=== PATIENT | male | born 2000 | race Two or more races ===

== ENCOUNTER 2024-07-03 17:32 | Inpatient (IN) | payer MEDICAID, OTHER ==
[~2024-07-03] VITALS: Ht 180.3 cm; Wt 133.3 kg
[2024-07-03 18:42] LABS: Urine Bacteria FEW /hpf (None Seen); Urine Blood Negative /uL (Negative); Urine Clarity Clear (Clear); Urine Color Yellow (Yellow); Urine Mucus FEW (None Seen); Urine Protein, UAD 3+ (Negative); Urine Specific Gravity 1.049 (1.001-1.035); Urine Urobilinogen Normal (Negative); Urine WBC 5 /hpf (0 - 3)
--- NOTE | 2024-07-03 19:41 | DVH ---
ULTRASOUND OF SCROTUM AND CONTENTS. INDICATION: PAIN AND SWELLING LUMP LEFT COMPARISON: None TECHNIQUE: Multiple real-time grayscale sonographic and color and duplex Doppler images of the scrotu m and its contents were obtained. FINDINGS: The right testicle measures 3.1 x 2.3 x 4.1 cm. The left testicle measures 2.7 x 2.2 x 3.2 cm. 3.0 x 1.6 x 3.5 cm complex fluid collection seen at the inferior left scrotum. The right epididymal head measures 2.0 cm. The left epididymal head measures 1.8 cm. Subsequent color and duplex Doppler interrogation of the testes demonstrated symmetric normal vascula r flow to both testicles. IMPRESSION: 1. 3.5 cm complex fluid collection seen at the inferior left scrotum, possibly an abscess.. 2. No evidence of testicular torsion.
[2024-07-03 20:57] LABS: Basophils # (auto) 0.1 10 ^3/uL (0-0.2); Basophils % (auto) 0.6 % (0.0-2.0); Eosinophils # (auto) 0.2 10 ^3/uL (0-0.8); Eosinophils % (auto) 1.5 % (0.0-7.0); Lymphocytes # (auto) 2.2 10 ^3/uL (0.4-5.4); Lymphocytes % (auto) 18.3 % (10.0-50.0); Monocytes # (auto) 0.7 10 ^3/uL (0-1.3); Monocytes % (auto) 6.1 % (0.0-12.0); Neutrophils # (auto) 8.8 10 ^3/uL (1.6-8.6); Neutrophils % (auto) 73.5 % (37.0-80.0); Nucleated Red Blood Cells % 0.2 %
[2024-07-03 20:58] LABS: Hematocrit 49.9 % (41.0-53.0); Hemoglobin 16.9 g/dL (13.5-17.5); Mean Corpuscular Hemoglobin 28.3 pg (28.0-32.0); Mean Corpuscular Volume 83.5 fL (80.0-100.0); Platelet Count (auto) 275 10^3/uL (140-450); Red Blood Cells 5.98 10^6/uL (4.5-5.90)
[2024-07-03 20:59] LABS: Mean Corpuscular Hgb Conc. 33.9 g/dL (32.0-36.0)
[2024-07-03 21:00] LABS: Alanine Aminotransferase 84 U/L (7-40); Albumin 5.2 g/dL (3.2-4.8); Alkaline Phosphatase 104 U/L (46-116); Anion Gap 23.00001 (5-15); Aspartate Aminotransferase 102 U/L (13-40); BUN/Creatinine Ratio 7.1 (10.0-20.0); Bilirubin, Total 0.6 mg/dL (0.2-1.0); Blood Urea Nitrogen 6 mg/dL (9-23); Calcium 9.8 mg/dL (8.7-10.4); Chloride 98 mmol/L (98-107); Glucose 284 mg/dL (74-106); Sodium 131 mmol/L (136-145); Total Protein 8.2 g/dL (5.7-8.2)
[2024-07-03 21:03] LABS: Carbon Dioxide < 10 mmol/L (20-31); Potassium 5.6 mmol/L (3.5-5.1)
--- NOTE | 2024-07-03 22:58 | ED.PDOC ---
General HPI Comments 23-year-old male complaining of left-sided testicle pain. Patient states started three or four days ago. No injury reported. Nothing makes it better, walking makes it worse. Upon assessment patient states he has been excessively thirsty and urinating with nocturia. Patient states he was not seen a primary care doctor in many years. Chief Complaint: Testicle Pain Time Seen by MD: 17:58 Primary Care Provider: ? Reviewed notes: Nurses Notes Allergies: Coded Allergies: NO KNOWN ALLERGIES (Unverified , 07/03/24) Information Source: Patient Mode of Arrival: Ambulatory Past Medical History PAST MEDICAL HISTORY: Denies Surgical History: Denies all surgeries Constitutional: denies: chills, diaphoresis, fatigue, fever, malaise, sweats, weakness, others EENTM: denies: blurred vision, double vision, ear bleeding, ear discharge, ear drainage, ear pain, ear ringing, eye pain, eye redness, hearing loss, mouth pain, mouth swelling, nasal discharge, nose bleeding, nose congestion, nose pain, photophobia, tearing, throat pain, throat swelling, voice changes, others Respiratory: denies: cough, hemoptysis, orthopnea, SOB at rest, shortness of breath, SOB with excertion, stridor, wheezing, others Cardiovascular: denies: chest pain, dizzy spells, diaphoresis, Dyspnea on exertion, edema, irregular heart beat, left arm pain, lightheadedness, palpitations, PND, syncope, others Gastrointestinal: denies: abdomen distended, abdominal pain, blood streaked bowels, constipated, diarrhea, dysphagia, difficulty swallowing, hematemesis, melena, nausea, poor appetite, poor fluid intake, rectal bleeding, rectal pain, vomiting, others Genitourinary: reports: testicle pain; denies: burning, dysuria, flank pain, frequency, hematuria, incontinence, penile discharge, penile sore, pain, testicle swelling, urgency, others Neurological: denies: dizziness, fainting, headache, left sided numbness, left sided weakness, numbness, paresthesia, pre-existing deficit, right sided numbness, right sided weakness, seizure, speech problems, tingling, tremors, weakness, others Musculoskeletal: denies: back pain, gout, joint pain, joint swelling, muscle pain, muscle stiffness, neck pain, others Integumetry: denies: bruises, change in color, change in hair/nails, dryness, laceration, lesions, lumps, rash, wounds, others Allergic/Immunocompromised: denies: Difficulty Healing, Frequent Infections, Hives, Itching, others Hematologic/Lymphatic: denies: anemia, blood clots, easy bleeding, easy bruising, swollen glands, others Endocrine: reports: excessive thirst, excessive urination Physical Exam General Appearance: No Apparent Distress, Obese HEENT: Normal ENT Inspection, Pharynx Normal, TMs Normal Neck: Full Range of Motion, Non-Tender, Normal, Normal Inspection Respiratory: Chest Non-Tender, Lungs Clear, No Accessory Muscle Use, No Respiratory Distress, Normal Breath Sounds Cardiovascular: No Edema, No JVD, No Murmur, No Gallop, Normal Peripheral Pulses, Regular Rate/Rhythm Breast Exam: Deferred Gastrointestinal: No Organomegaly, Non Tender, No Pulsatile Mass, Normal Bowel Sounds, Soft Genitalia: Scrotum (Erythema noted on the left side scrotum into the groin region. Indurated. Tender to palpation), Testicle Pelvic: Deferred Rectal: Deferred Extremities: No calf tenderness, Normal capillary refill, Normal inspection, Normal range of motion, Non-tender, No pedal edema Musculoskeletal : Apperance: Normal Neurologic: Alert, operations research scientist II-XII nml as Tested, No Motor Deficits, Normal Affect, Normal Mood, No Sensory Deficits Cerebellar Function: Normal Reflexes: Normal Skin: Dry, Normal Color, Warm Lymphatic: No Adenopathy Was a procedure done? Was a procedure done?: No Differential Diagnosis Kidney stone (Female): N/A Penile/Scrotal: Other (Cellulitis) Other Differential Diagnosis Hyperglycemia, DKA, diabetes type 2. X-Ray, Labs, Meds, VS Vital Signs Date Time Temp Pulse Resp B/P (MAP) Pulse Ox O2 Delivery O2 Flow Rate FiO2 07/03/24 20:41 99.5 122 20 147/78 (101) 95 99.5 07/03/24 18:00 98.9 130 16 146/91 (109) 97 Lab Test 07/03/24 21:28 07/03/24 19:27 07/03/24 19:15 07/03/24 17:59 Range/Units Lactic Acid Level 1.4 0.4-2.0 mmol/L White Blood Count 12.0 H 4.4-10.8 10^3/uL Red Blood Count 5.98 H 4.5-5.90 10^6/uL Hemoglobin 16.9 13.5-17.5 g/dL Hematocrit 49.9 41.0-53.0 % Mean Corpuscular Volume 83.5 80.0-100.0 fL Mean Corpuscular Hemoglobin 28.3 28.0-32.0 pg Mean Corpuscular Hemoglobin Concent 33.9 32.0-36.0 g/dL Red Cell Distribution Width 14.0 11.8-14.3 % Platelet Count 275 140-450 10^3/uL Mean Platelet Volume 8.4 6.9-10.8 fL Neutrophils (%) (Auto) 73.5 37.0-80.0 % Lymphocytes (%) (Auto) 18.3 10.0-50.0 % Monocytes (%) (Auto) 6.1 0.0-12.0 % Eosinophils (%) (Auto) 1.5 0.0-7.0 % Basophils (%) (Auto) 0.6 0.0-2.0 % Neutrophils # (Auto) 8.8 H 1.6-8.6 10 ^3/uL Lymphocytes # (Auto) 2.2 0.4-5.4 10 ^3/uL Monocytes # (Auto) 0.7 0-1.3 10 ^3/uL Eosinophils # (Auto) 0.2 0-0.8 10 ^3/uL Basophils # (Auto) 0.1 0-0.2 10 ^3/uL Nucleated Red Blood Cells 0.2 % Sodium Level 131 L 136-145 mmol/L Potassium Level 5.6 *H 3.5-5.1 mmol/L Chloride Level 98 98-107 mmol/L Carbon Dioxide Level < 10 *L 20-31 mmol/L Anion Gap 23.62187 H 5-15 Blood Urea Nitrogen 6 L 9-23 mg/dL Creatinine 0.85 0.700-1.30 mg/dL Glomerular Filtration Rate Calc 126 >90 mL/min BUN/Creatinine Ratio 7.1 L 10.0-20.0 Serum Glucose 284 H 74-106 mg/dL Calcium Level 9.8 8.7-10.4 mg/dL Total Bilirubin 0.6 0.2-1.0 mg/dL Aspartate Amino Transferase (AST) 102 H 13-40 U/L Alanine Aminotransferase (ALT) 84 H 7-40 U/L Alkaline Phosphatase 104 46-116 U/L Total Protein 8.2 5.7-8.2 g/dL Albumin 5.2 H 3.2-4.8 g/dL POC Glucose 282 H 70-106 mg/dl Urine Color Yellow Yellow Urine Clarity Clear Clear Urine pH 6.0 5.0-9.0 Urine Specific [place] 1.049 H 1.001-1.035 Urine Protein 3+ H Negative Urine Ketones 4+ H Negative Urine Blood Negative Negative /uL Urine Nitrite Negative Negative Urine Bilirubin Negative Negative Urine Urobilinogen Normal Negative mg/dL Urine Leukocyte Esterase Negative Negative /uL Urine RBC 3 0 - 3 /hpf Urine WBC 5 0 - 3 /hpf Urine Squamous Epithelial Cells Few <5 /hpf Urine Bacteria Few H None Seen /hpf Urine Mucus Few None Seen Urine Glucose 4+ H Normal mg/dL X-Ray, Labs, Meds, VS Comment Patient will be admitted for new onset DM type 2 Concerns of DKA Patient will be started on IV hydration 1 L NS Patient was started on Ancef 1 g Testicular ultrasound negative Patient has prior medical visits reviewed. Med reconciliation performed Vital signs reviewed Time of 1ST Reevaluation: 22:58 Reevaluation 1ST: Unchanged Patient Education/Counseling: Diagnosis, Treatment Family Education/Counseling: Diagnosis Departure 1 Departure Time of Disposition: 22:56 Impression: Primary Impression: Cellulitis of scrotum Additional Impressions: DKA (diabetic ketoacidosis) Qualified Codes: E11.10 - Type 2 diabetes mellitus with ketoacidosis without coma New onset type 2 diabetes mellitus Disposition: ADMITTED INPATIENT Condition: Stable Critical Care Note Critical Care Time?: No Stability Stability form required: No Heart Score Heart Score: Heart Score Response (Comments) Value History N/A 0 EKG N/A 0 Age N/A 0 Risk Factors N/A 0 Troponin N/A 0 Total 0 AARON CANELA Jul 03, 2024 22:58
[2024-07-03 23:00] VITALS: PULSE 100; RESP 18; O2SAT 97
[2024-07-04] MEDS ORDERED: MORPHINE SULFATE INJ 2 MG/ml SYRG IV PRN
[2024-07-04] MEDS ORDERED: NITROGLYCERIN 0.4 MG SL TAB SL PRN
[2024-07-04] MEDS: ceFAZolin 1GM/50ML 50 ML IV ONE (00:24)
[2024-07-04] MEDS: SODIUM CHLORIDE 0.9% 1,000 ML IV ONE ×2 (00:24→16:00)
[2024-07-04] MEDS: InsuLIN REG 1unit/0.01ml Soln (100units/ml) SC ONE (00:24)
[2024-07-04] MEDS ORDERED: TEMAZEPAM 15 MG CAP PO PRN (00:30)
[2024-07-04] MEDS ORDERED: DEXTROSE (50%) 50ML SYRG IV PRN (00:30)
[2024-07-04] MEDS ORDERED: HYDROcodone-ACET 5/325MG TAB PO PRN (00:30)
[2024-07-04] MEDS ORDERED: ONDANSETRON HCL 4 MG/2 ML VIAL IV PRN (00:30)
[2024-07-04] MEDS ORDERED: VANCOMYCIN PER PHARMACY 0 MG IV SCH (00:30)
[2024-07-04] MEDS ORDERED: ACETAMINOPHEN 325 MG TAB PO PRN (00:30)
[2024-07-04] MEDS: SODIUM ZIRCONIUM CYCL 10 GM PAK PO ONE (00:52)
[2024-07-04] MEDS: INSULIN DRIP 100 UNIT/100ML 100 ML IV SCH (01:00)
[2024-07-04] MEDS: VANCOMYCIN 1GM/200ML PREMIX 200 ML IV SCH (01:12)
[2024-07-04] MEDS ORDERED: ACCU-CHEK COMFORT CURVE STRIP VI SCH (01:30)
[2024-07-04 01:57] LABS: Glucose 288 mg/dL (74-106)
[2024-07-04 02:01] LABS: Anion Gap 23.00001 (5-15); BUN/Creatinine Ratio 7.7 (10.0-20.0); Blood Urea Nitrogen 7 mg/dL (9-23); Chloride 99 mmol/L (98-107); Sodium 132 mmol/L (136-145)
[2024-07-04 02:32] LABS: Carbon Dioxide < 10 mmol/L (20-31); Potassium 6.4 mmol/L (3.5-5.1)
[2024-07-04] MEDS: ACCU-CHEK COMFORT CURVE STRIP VI SCH (02:50)
[2024-07-04] MEDS: SODIUM CHLORIDE 0.9% 1,000 ML IV SCH ×2 (05:00→06:37)
--- NOTE | 2024-07-04 05:56 | DVHHP2 ---
History of Present Illness Reason for Visit: Testicular pain History of Present Illness 23-year-old male presents for evaluation of left testicular pain. He reports a three day history of noticing a lump on his left testicle that is tender to touch. Denies fever or chills. He also reports excessive thirst and urination. Denies history of diabetes or any other medical problems. Past Medical History Denies Past Surgical History Denies Family History Noncontributory Smoke: No ALCOHOL: occassional Drugs: None Review of Systems Review of Systems Review of systems are currently negative otherwise addressed in HPI. Allergies: Coded Allergies: NO KNOWN ALLERGIES (Unverified , 07/03/24) Medications Current Medications Medications Dose Ordered Sig/Stephenie Route Start Time Stop Time Status Last Admin Dose Admin Nitroglycerin 0.4 mg Q5MINP PRN SL 07/04/24 00:00 Morphine Sulfate 2 mg Q30M PRN IV 07/04/24 00:00 Vancomycin HCl 0 ml @ 0 mls/hr UD IV 07/04/24 00:30 UNV Sodium Chloride 1,000 ml @ 250 mls/hr Q4H IV 07/04/24 04:30 07/04/24 06:29 07/04/24 05:00 250 MLS/HR Sodium Chloride 1,000 ml @ 150 mls/hr Q6H40M IV 07/04/24 06:30 Insulin Human (Reg)/Sodium Chloride 100 ml @ 0.5 mls/hr Q24H IV 07/04/24 00:30 07/04/24 01:00 4 MLS/HR Dextrose 50 ml UD PRN IV 07/04/24 00:30 Acetaminophen/ Hydrocodone Bitart 1 tab Q4HP PRN PO 07/04/24 00:30 Temazepam 15 mg QHSP PRN PO 07/04/24 00:30 Ondansetron HCl 4 mg Q4HP PRN IV 07/04/24 00:30 Acetaminophen 650 mg Q6HP PRN PO 07/04/24 00:30 Diagnostic Test (Pha) 1 strip Q90MIN 07/04/24 02:30 07/04/24 04:00 1 STRIP Exam Vital Signs Vital Signs Date Time Temp Pulse Resp B/P (MAP) Pulse Ox O2 Delivery O2 Flow Rate FiO2 07/04/24 04:00 89 07/04/24 01:00 18 132/108 (116) 97 07/03/24 23:00 Room Air* 0 21 07/03/24 23:00 98.4 98.4 Exam Gen: 23-year-old male in no apparent distress, morbidly obese Skin: Warm, dry, normal color and texture, no rash. HEENT: Normocephalic atraumatic, mucous membranes moist and pink. Neck: Cervical and supraclavicular nodes normal without enlargement, trachea is midline, thyroid gland is normal without masses. Pulmonary: Clear to auscultation and percussion bilaterally. Cardiac: Regular rate and rhythm. No murmur : Left testicular lump Abdomen: Soft, nontender, nondistended, bowel sounds present all 4 quadrants, no guarding, no rigidity, no organomegaly. Extremities: No cyanosis, clubbing, no edema Neuro: Cranial nerves II through XII grossly intact, normal affect and speech, no focal motor deficits. Labs/Xrays ORDERING PHYSICIAN: AARON CANELA PROCEDURE(s): TESUS - TESTICULAR ULTRASOUND REASON: PAIN AND SWELLING LUMP LEFT ORDER NUMBER(s): [id number], ACCESSION NUMBER(s): [id number] ULTRASOUND OF SCROTUM AND CONTENTS. INDICATION: PAIN AND SWELLING LUMP LEFT COMPARISON: None TECHNIQUE: Multiple real-time grayscale sonographic and color and duplex Doppler images of the scrotum and its contents were obtained. FINDINGS: The right testicle measures 3.1 x 2.3 x 4.1 cm. The left testicle measures 2.7 x 2.2 x 3.2 cm. 3.0 x 1.6 x 3.5 cm complex fluid collection seen at the inferior left scrotum. The right epididymal head measures 2.0 cm. The left epididymal head measures 1.8 cm. Subsequent color and duplex Doppler interrogation of the testes demonstrated symmetric normal vascular flow to both testicles. IMPRESSION: 1. 3.5 cm complex fluid collection seen at the inferior left scrotum, possibly an abscess.. 2. No evidence of testicular torsion. Labs Test 07/04/24 02:32 07/04/24 00:54 07/03/24 21:28 11/19/24 19:27 Range/Units POC Glucose 250 H 70-106 mg/dl Sodium Level 132 L 136-145 mmol/L Potassium Level 6.4 *H 3.5-5.1 mmol/L Chloride Level 99 98-107 mmol/L Carbon Dioxide Level < 10 *L 20-31 mmol/L Anion Gap 23.97456 H 5-15 Blood Urea Nitrogen 7 L 9-23 mg/dL Creatinine 0.91 0.700-1.30 mg/dL Glomerular Filtration Rate Calc 122 >90 mL/min BUN/Creatinine Ratio 7.7 L 10.0-20.0 Serum Glucose 288 H 74-106 mg/dL Calcium Level 10.0 8.7-10.4 mg/dL Lactic Acid Level 1.4 0.4-2.0 mmol/L White Blood Count 12.0 H 4.4-10.8 10^3/uL Red Blood Count 5.98 H 4.5-5.90 10^6/uL Hemoglobin 16.9 13.5-17.5 g/dL Hematocrit 49.9 41.0-53.0 % Mean Corpuscular Volume 83.5 80.0-100.0 fL Mean Corpuscular Hemoglobin 28.3 28.0-32.0 pg Mean Corpuscular Hemoglobin Concent 33.9 32.0-36.0 g/dL Red Cell Distribution Width 14.0 11.8-14.3 % Platelet Count 275 140-450 10^3/uL Mean Platelet Volume 8.4 6.9-10.8 fL Neutrophils (%) (Auto) 73.5 37.0-80.0 % Lymphocytes (%) (Auto) 18.3 10.0-50.0 % Monocytes (%) (Auto) 6.1 0.0-12.0 % Eosinophils (%) (Auto) 1.5 0.0-7.0 % Basophils (%) (Auto) 0.6 0.0-2.0 % Neutrophils # (Auto) 8.8 H 1.6-8.6 10 ^3/uL Lymphocytes # (Auto) 2.2 0.4-5.4 10 ^3/uL Monocytes # (Auto) 0.7 0-1.3 10 ^3/uL Eosinophils # (Auto) 0.2 0-0.8 10 ^3/uL Basophils # (Auto) 0.1 0-0.2 10 ^3/uL Nucleated Red Blood Cells 0.2 % Total Bilirubin 0.6 0.2-1.0 mg/dL Aspartate Amino Transferase (AST) 102 H 13-40 U/L Alanine Aminotransferase (ALT) 84 H 7-40 U/L Alkaline Phosphatase 104 46-116 U/L Total Protein 8.2 5.7-8.2 g/dL Albumin 5.2 H 3.2-4.8 g/dL Beta-Hydroxybutyric Acid 1.677 H < 0.4 mmol/L Test 07/03/24 17:59 Range/Units Urine Color Yellow Yellow Urine Clarity Clear Clear Urine pH 6.0 5.0-9.0 Urine Specific [place] 1.049 H 1.001-1.035 Urine Protein 3+ H Negative Urine Ketones 4+ H Negative Urine Blood Negative Negative /uL Urine Nitrite Negative Negative Urine Bilirubin Negative Negative Urine Urobilinogen Normal Negative mg/dL Urine Leukocyte Esterase Negative Negative /uL Urine RBC 3 0 - 3 /hpf Urine WBC 5 0 - 3 /hpf Urine Squamous Epithelial Cells Few <5 /hpf Urine Bacteria Few H None Seen /hpf Urine Mucus Few None Seen Urine Glucose 4+ H Normal mg/dL Assessment/Plan Assessment/Plan Assessment Diabetic ketoacidosis Left testicular abscess Hyperkalemia Plan Admit the patient to [facility] to the hospitalist Surgical consult Vancomycin NPO DKA protocol Continue treatment per orders. Total critical care time excluding procedures performed this 50 minutes. Plan discussed with: Patient My Orders Orders - CLARE BETANCOURT AGACNP Procedure Category Date Status Time Admit ADMIT 07/03/24 Transmitted 23:55 Nitroglycerin [facility] 07/04/24 In Process Sublingual (Ntrostat 00:00 Morphine Sulfate [facility] 07/04/24 In Process Injection 00:00 Stat Ekg For Chest [facility] 07/03/24 In Process Pain 23:55 Notify Md Of Changes [facility] 07/03/24 In Process From Base 23:55 Midwife Practitioner For [facility] 07/03/24 In Process 24 Hours 23:55 Emergency Dysrhythmia [facility] 07/03/24 In Process Protocol 23:55 Rhythm Strips Once [facility] 07/03/24 In Process Every Shift 23:55 Oxygen By Nasal RT 07/03/24 Transmitted Cannula 23:55 *Rn Hadoop Engineer REFER 07/04/24 Transmitted Referral 00:19 * Surgical Consult CONS 11/20/24 Transmitted Vancomycin Per [facility] 07/04/24 Pending Pharmacy 00:30 Insulin Drip Protocol [facility] 07/04/24 In Process Sodium Chloride 0.9% [facility] 07/04/24 In Process 04:30 Sodium Chloride 0.9% [facility] 07/04/24 In Process 06:30 Insulin Drip 100 [facility] 07/04/24 In Process Unit/100ml (Myxredlin 00:30 Dextrose 50% Syringe [facility] 07/04/24 In Process 00:30 Basic Metabolic Panel LAB 07/04/24 Logged 06:24 Basic Metabolic Panel LAB 07/04/24 Logged 12:24 Basic Metabolic Panel LAB 07/04/24 Logged 18:24 Urinalysis LAB 07/04/24 Logged 00:24 Neurological [facility] 07/04/24 In Process Assessment 00:24 Vs/Hemodynamics [facility] 07/04/24 In Process 00:24 Hydrocodone-Acet [facility] 07/04/24 In Process 5/325mg Tab ([place] 00:30 Temazepam (Restoril) [facility] 07/04/24 In Process 00:30 Ondansetron Hcl [facility] 07/04/24 In Process (Zofran) 00:30 Complete Blood Count LAB 07/05/24 Verified 04:00 Npo (Nothing By DIET 07/04/24 Transmitted Mouth) Diet Breakfast Condition: Critical [facility] 07/04/24 In Process 00:24 Acetaminophen Tablet [facility] 07/04/24 In Process (Tylenol Tablet) 00:30 Bedrest With Bathroom [facility] 07/04/24 In Process Privileg 00:24 Basic Metabolic Panel LAB 07/05/24 Verified 04:00 Glucose Blood [facility] 07/04/24 In Process (Accu-Chek Comfort 02:30 Potassium LAB 07/04/24 Logged 05:49 Communication Order ORDERS 07/04/24 Verified 05:45 Date of Service: Jul 04, 2024 Billing Provider: CLARE BETANCOURT Common Visit Codes: [id number] CARE 30-74 MIN CLARE BETANCOURT Jul 04, 2024 05:56
[2024-07-04 07:45] VITALS: PULSE 90; RESP 15; O2SAT 95
[2024-07-04 10:16] LABS: Calcium 9.4 mg/dL (8.7-10.4)
[2024-07-04 10:21] LABS: Glucose 212 mg/dL (74-106)
[2024-07-04 12:07] LABS: Anion Gap 16 (5-15); Carbon Dioxide 16 mmol/L (20-31); Chloride 100 mmol/L (98-107); Sodium 132 mmol/L (136-145)
[2024-07-04 12:08] LABS: Blood Urea Nitrogen < 5 mg/dL (9-23)
[2024-07-04 12:09] LABS: Potassium 6.1 mmol/L (3.5-5.1)
[2024-07-04] MEDS ORDERED: VANCOMYCIN 1GM/200ML PREMIX 200 ML IV SCH (14:00)
--- NOTE | 2024-07-04 14:08 | DVHPN2 ---
Subjective Patient denies any symptoms at this time. Reports that his scrotal abscess began draining. Reviewed: Care Plan, H&P, Labs, Medications Changes from previous H/P or p: No Changes General: Per HPI Objective Vitals Vital Signs Date Time Temp Pulse Resp B/P (MAP) Pulse Ox O2 Delivery O2 Flow Rate FiO2 07/04/24 12:00 77 07/04/24 10:30 12 121/71 (88) 94 07/04/24 07:45 Room Air* 0 21 07/04/24 07:45 98.1 98.1 Intake/Output Intake and Output 07/04/24 07:00 Intake Total 467.5 ml Balance 467.5 ml Intake IV Total 467.5 ml General Appearance: Alert, Oriented X3, Cooperative, No acute distress HEENT: Atraumatic, PERRLA Lungs: Clear to auscultation, Normal air movement Cardiovascular: Normal S1, Normal S2 Abdomen: Normal bowel sounds Genitourinary: No Apparent Abnormalities Back: Flank Tenderness, Midline Tenderness Neuro: Normal gait, Normal speech Psych/Mental Status: Mental status NL, Mood NL Medications Current Medications Medications Dose Ordered Sig/Stephenie Route Start Time Stop Time Status Last Admin Dose Admin Nitroglycerin 0.4 mg Q5MINP PRN SL 07/04/24 00:00 Morphine Sulfate 2 mg Q30M PRN IV 07/04/24 00:00 Vancomycin HCl 0 ml @ 0 mls/hr UD IV 07/04/24 00:30 Sodium Chloride 1,000 ml @ 150 mls/hr Q6H40M IV 07/04/24 06:30 07/04/24 06:37 150 MLS/HR Insulin Human (Reg)/Sodium Chloride 100 ml @ 0.5 mls/hr Q24H IV 07/04/24 00:30 07/04/24 01:00 4 MLS/HR Dextrose 50 ml UD PRN IV 07/04/24 00:30 Acetaminophen/ Hydrocodone Bitart 1 tab Q4HP PRN PO 07/04/24 00:30 Temazepam 15 mg QHSP PRN PO 07/04/24 00:30 Ondansetron HCl 4 mg Q4HP PRN IV 07/04/24 00:30 Acetaminophen 650 mg Q6HP PRN PO 07/04/24 00:30 Diagnostic Test (Pha) 1 strip Q90MIN 07/04/24 02:30 07/04/24 13:00 1 STRIP Vancomycin HCl 350 ml @ 200 mls/hr Q12H IV 07/04/24 14:00 Insulin Glargine 10 units DAILY@1000 SC 07/04/24 14:00 UNV Laboratory Results Laboratory Tests 07/03/24 19:27 07/04/24 09:54 Chemistry Test 07/03/24 19:27 07/04/24 00:54 07/04/24 08:15 07/04/24 09:54 Albumin 5.2 g/dL (3.2-4.8) H Calcium Level 9.8 mg/dL (8.7-10.4) 10.0 mg/dL (8.7-10.4) mg/dL (8.7-10.4) 9.4 mg/dL (8.7-10.4) Total Protein 8.2 g/dL (5.7-8.2) LFT Test 07/03/24 19:27 Alanine Aminotransferase (ALT) 84 U/L (7-40) H Alkaline Phosphatase 104 U/L (46-116) Aspartate Amino Transferase (AST) 102 U/L (13-40) H Total Bilirubin 0.6 mg/dL (0.2-1.0) HgA1c, TSH Test 07/04/24 14:03 Hemoglobin A1c Pending Urinalysis Test 07/03/24 17:59 Urine Color Yellow (Yellow) Urine Clarity Clear (Clear) Urine pH 6.0 (5.0-9.0) Urine Specific [place] 1.049 (1.001-1.035) Urine Protein 3+ (Negative) H Urine Ketones 4+ (Negative) H Urine Blood Negative /uL (Negative) Urine Nitrite Negative (Negative) Urine Bilirubin Negative (Negative) Urine Urobilinogen Normal mg/dL (Negative) Urine Leukocyte Esterase Negative /uL (Negative) Urine RBC 3 /hpf (0 - 3) Urine WBC 5 /hpf (0 - 3) Urine Squamous Epithelial Cells Few /hpf (<5) Urine Bacteria Few /hpf (None Seen) H Urine Mucus Few (None Seen) Urine Glucose 4+ mg/dL (Normal) H Labs and/or images reviewed: Labs reviewed by me, Image(s) reviewed by me Assessment/Plan Assessment/Plan Impression: -diabetic ketoacidosis -new diagnosis of diabetes mellitus -scrotal abscess with spontaneous draining -obesity -hyperkalemia Plan: -IV hydration -serial BMP -continue insulin drip -anion gap closing. Start Lantus -patient without nausea, start ice chips, water -repeat scrotal ultrasound in a.m. to reassess abscess for possible drainage -potassium lowering agents -diabetic education -social service consultation Critical care time spent with patient discussing and formulating plan of care: 40 minutes. This does not include time spent performing procedures. This medical document was created using an electronic medical record system with [employer] dictation system. Although this document has been carefully reviewed, there may still be some phonetic and typographical errors. These areas are purely typographical due to imperfections of the software programs, and do not reflect any compromise in the patient's medical care. Plan discussed with: Patient, Other (RN) My Orders Orders - JESÚS BECKER NP Procedure Category Date Status Time Hemoglobin A1c LAB 07/04/24 Logged 13:34 Basic Metabolic Panel LAB 07/04/24 Logged 15:00 Insulin Lantus PHA 07/04/24 Logged (Glargine) (Lantus) 14:00 Npo Except Ice Chips ORDERS 07/04/24 Transmitted 14:00 * Locomotive Engineer CONS 07/04/24 Verified Consult Date of Service: Jul 04, 2024 Billing Provider: JESÚS BECKER NP Common Visit Codes: [id number] CARE 30-74 MIN JESÚS BECKER NP Jul 04, 2024 14:08
[2024-07-04] MEDS: VANCOMYCIN 1.75GM/350ML 350 ML IV SCH (14:55)
[2024-07-04] MEDS: INSULIN LANTUS (GLARGINE) 1 /0.01ml (100units/ml) SC SCH (14:58)
[2024-07-04 15:58] LABS: Chloride 104 mmol/L (98-107); Sodium 136 mmol/L (136-145)
[2024-07-04 15:59] LABS: Calcium 9.9 mg/dL (8.7-10.4)
[2024-07-04 16:04] LABS: Glucose 210 mg/dL (74-106)
[2024-07-04 16:06] LABS: Anion Gap 22.00001 (5-15); BUN/Creatinine Ratio 7.8 (10.0-20.0); Blood Urea Nitrogen 6 mg/dL (9-23); Potassium 4.4 mmol/L (3.5-5.1)
[2024-07-04 16:24] LABS: Carbon Dioxide < 10 mmol/L (20-31)
[2024-07-04] MEDS: D5W/SOD CHLO 0.9% 1,000 ML IV SCH (17:19)
[2024-07-04 19:20] VITALS: RESP 15; O2SAT 96
[2024-07-05] VITALS (7 sets, daily range): BP systolic 119–140; BP diastolic 82–87; PULSE 74–82; RESP 16–18; TEMP 98.3–98.7; O2SAT 95–97
[2024-07-05] MEDS: INSULIN DRIP 100 UNIT/100ML 100 ML IV SCH (07:30)
[2024-07-05 08:57] LABS: Chloride 106 mmol/L (98-107); Potassium 3.6 mmol/L (3.5-5.1); Sodium 136 mmol/L (136-145)
[2024-07-05 08:58] LABS: Anion Gap 20.00001 (5-15); Calcium 9.3 mg/dL (8.7-10.4); Hematocrit 40.7 % (41.0-53.0); Mean Corpuscular Hemoglobin 29.2 pg (28.0-32.0); Mean Corpuscular Hgb Conc. 34.3 g/dL (32.0-36.0); Mean Corpuscular Volume 85.2 fL (80.0-100.0); Platelet Count (auto) 205 10^3/uL (140-450); Red Blood Cells 4.78 10^6/uL (4.5-5.90); Red Cell Distribution Width 14.7 % (11.8-14.3); White Blood Cell 5.3 10^3/uL (4.4-10.8)
[2024-07-05 09:00] LABS: Basophils % (manual) 0 (0.0-2.0); Blast Cells 0; Metamyelocytes % 0; Myelocytes % 0; Promyelocytes % 0; Reactive Lymphocytes 0
[2024-07-05 09:03] LABS: Glucose 233 mg/dL (74-106)
[2024-07-05 09:04] LABS: BUN/Creatinine Ratio 7.1 (10.0-20.0); Blood Urea Nitrogen < 5 mg/dL (9-23)
[2024-07-05 09:08] LABS: Carbon Dioxide < 10 mmol/L (20-31)
[2024-07-05 09:37] LABS: Band Neutrophils % (manual) 1; Monocytes % (manual) 12 (0-12)
[2024-07-05 09:38] LABS: Eosinophils % (manual) 2 (0-7); Lymphocytes % (manual) 28 (10.0-50.0)
[2024-07-05 09:46] LABS: Platelet Estimate Adequate
--- NOTE | 2024-07-05 09:55 | DVHPN2 ---
Subjective Patient denies any symptoms at this time. Reports that his scrotal abscess began draining. Reviewed: Care Plan, H&P, Labs, Medications Changes from previous H/P or p: No Changes General: Per HPI Objective Vitals Vital Signs Date Time Temp Pulse Resp B/P (MAP) Pulse Ox O2 Delivery O2 Flow Rate FiO2 07/05/24 08:21 74 16 97 Room Air* 0 21 07/05/24 08:00 98.0 132/86 (101) 98.0 Intake/Output Intake and Output 07/05/24 07:00 Intake Total 4339.0 ml Balance 4339.0 ml Intake IV Total 4339.0 ml General Appearance: Alert, Oriented X3, Cooperative, No acute distress HEENT: Atraumatic, PERRLA Lungs: Clear to auscultation, Normal air movement Cardiovascular: Normal S1, Normal S2 Abdomen: Normal bowel sounds Genitourinary: No Apparent Abnormalities Back: Flank Tenderness, Midline Tenderness Neuro: Normal gait, Normal speech Psych/Mental Status: Mental status NL, Mood NL Medications Current Medications Medications Dose Ordered Sig/Stephenie Route Start Time Stop Time Status Last Admin Dose Admin Nitroglycerin 0.4 mg Q5MINP PRN SL 07/04/24 00:00 Morphine Sulfate 2 mg Q30M PRN IV 07/04/24 00:00 Vancomycin HCl 0 ml @ 0 mls/hr UD IV 07/04/24 00:30 Insulin Human (Reg)/Sodium Chloride 100 ml @ 0.5 mls/hr Q24H IV 07/04/24 00:30 07/04/24 23:51 2 MLS/HR Dextrose 50 ml UD PRN IV 07/04/24 00:30 Acetaminophen/ Hydrocodone Bitart 1 tab Q4HP PRN PO 07/04/24 00:30 Temazepam 15 mg QHSP PRN PO 07/04/24 00:30 Ondansetron HCl 4 mg Q4HP PRN IV 07/04/24 00:30 Acetaminophen 650 mg Q6HP PRN PO 07/04/24 00:30 Diagnostic Test (Pha) 1 strip Q90MIN 07/04/24 02:30 07/05/24 08:21 1 STRIP Vancomycin HCl 350 ml @ 200 mls/hr Q12H IV 07/04/24 14:00 07/05/24 01:44 200 MLS/HR Insulin Glargine 10 units DAILY@1000 SC 07/04/24 14:00 07/04/24 14:58 10 UNITS Dextrose/Sodium Chloride 1,000 ml @ 150 mls/hr Q6H40M IV 07/04/24 17:00 07/05/24 08:40 150 MLS/HR Insulin Human (Reg)/Sodium Chloride 100 ml @ 0.5 mls/hr Q24H IV 07/05/24 07:30 07/05/24 07:30 4 MLS/HR Laboratory Results Laboratory Tests 07/05/24 08:37 Chemistry Test 07/04/24 09:54 07/04/24 15:14 07/05/24 08:37 Calcium Level 9.4 mg/dL (8.7-10.4) 9.9 mg/dL (8.7-10.4) 9.3 mg/dL (8.7-10.4) HgA1c, TSH Test 07/04/24 15:14 Hemoglobin A1c 13.5 % A1C (<5.7) H Urinalysis Test 07/03/24 17:59 Urine Color Yellow (Yellow) Urine Clarity Clear (Clear) Urine pH 6.0 (5.0-9.0) Urine Specific [place] 1.049 (1.001-1.035) Urine Protein 3+ (Negative) H Urine Ketones 4+ (Negative) H Urine Blood Negative /uL (Negative) Urine Nitrite Negative (Negative) Urine Bilirubin Negative (Negative) Urine Urobilinogen Normal mg/dL (Negative) Urine Leukocyte Esterase Negative /uL (Negative) Urine RBC 3 /hpf (0 - 3) Urine WBC 5 /hpf (0 - 3) Urine Squamous Epithelial Cells Few /hpf (<5) Urine Bacteria Few /hpf (None Seen) H Urine Mucus Few (None Seen) Urine Glucose 4+ mg/dL (Normal) H Labs and/or images reviewed: Labs reviewed by me, Image(s) reviewed by me Assessment/Plan Assessment/Plan Impression: -diabetic ketoacidosis -new diagnosis of diabetes mellitus -scrotal abscess with spontaneous draining -obesity -hyperkalemia Plan: Events: Patient continues to have gap acidosis. We will recheck serum ketones. Further discussion made with the patient who denies having any abnormal oral intake,: Flu-like symptoms, or excessive alcohol intake. Primary nurse also reports that blood has been having issues with hemolysis. We will check triglyceride level. -serial BMP -continue insulin drip -anion gap closing. Start Lantus -patient without nausea, start ice chips, water -repeat scrotal ultrasound in a.m. to reassess abscess for possible drainage -potassium lowering agents -diabetic education -social service consultation Critical care time spent with patient discussing and formulating plan of care: 40 minutes. This does not include time spent performing procedures. This medical document was created using an electronic medical record system with [employer] dictation system. Although this document has been carefully reviewed, there may still be some phonetic and typographical errors. These areas are purely typographical due to imperfections of the software programs, and do not reflect any compromise in the patient's medical care. Plan discussed with: Patient, Other (RN) My Orders Orders - JESÚS BECKER NP Procedure Category Date Status Time Insulin Lantus PHA 07/04/24 In Process (Glargine) (Lantus) 14:00 Npo Except Ice Chips ORDERS 07/04/24 Transmitted 14:00 * Transport Analyst CONS 07/04/24 Transmitted Consult *Rn County Engineer REFER 07/04/24 Transmitted Referral 14:08 D5w/Sod Chlo 0.9% PHA 07/04/24 In Process (D5w Ns 0.9%) 17:00 Mixed Venous Blood Gas RT 07/05/24 Logged 09:34 Drug Screen LAB 07/05/24 Logged 09:35 Beta Hcg, Quantitative LAB 07/05/24 In Process 09:35 Lipid Panel LAB 07/05/24 Logged 09:46 Beta-Hydroxybutyrate LAB 07/05/24 Logged 09:46 Drug Screen LAB 07/05/24 Logged 09:48 Chest Xray 1 View XY 07/05/24 Logged 09:49 Date of Service: Jul 05, 2024 Billing Provider: JESÚS BECKER NP Common Visit Codes: [id number] CARE 30-74 MIN JESÚS BECKER NP Jul 05, 2024 09:55
--- NOTE | 2024-07-05 10:32 | DVH ---
CHEST RADIOGRAPH Indication: pna Technique: Single frontal view of the chest was obtained COMPARISON: FINDINGS: Lines and Tubes: None Lungs: Low lung volumes. Pleura: No effusion. No pneumothorax. Cardiomediastinal contours: Cardiomegaly Bones: Unremarkable IMPRESSION: Cardiomegaly. Low lung volumes.
[2024-07-05 11:07] LABS: Cholesterol 409 mg/dL (< 200); HDL Cholesterol 16 mg/dL (40-59)
[2024-07-05 11:14] LABS: Triglycerides 1709 mg/dL (< 150)
[2024-07-05] MEDS ORDERED: DEXTROSE (50%) 50ML SYRG IV PRN (13:45)
[2024-07-05] MEDS: SODIUM CHLORIDE 0.9% 1,000 ML IV SCH (14:34)
[2024-07-05] MEDS: InsuLIN REG 1unit/0.01ml Soln (100units/ml) SC SCH ×2 (16:42→21:49)
--- NOTE | 2024-07-05 16:55 | CODING ---
Date of Service: Jul 05, 2024 Billing Provider: JESÚS BECKER NP Common Visit Codes: [id number] SAME DATE (HIGH) JESÚS BECKER NP Jul 05, 2024 16:55
[2024-07-05] MEDS: ACCU-CHEK COMFORT CURVE STRIP VI SCH (16:58)
[2024-07-05] MEDS: VANCOMYCIN 1GM/200ML PREMIX 200 ML IV SCH (21:35)
[2024-07-05] MEDS: ATORVASTATIN 20 MG TAB PO SCH (21:36)
[2024-07-05 22:17] LABS: Urine Bacteria None Seen /hpf (None Seen)
[2024-07-05 22:26] LABS: Urine Blood Negative /uL (Negative); Urine Clarity Clear (Clear); Urine Color Yellow (Yellow); Urine Mucus FEW (None Seen); Urine Protein, UAD TRACE (Negative); Urine Urobilinogen 2 mg/dL (Negative); Urine WBC 3 /hpf (0 - 3); Urine pH 5.5 (5.0-9.0)
[2024-07-05 22:44] LABS: Amphetamine Screen, Urine Neg (NEGATIVE); Barbiturate Scree,Urine Neg (NEGATIVE); Benzodiazephine Screen, Urine Neg (NEGATIVE); Cannabinoid Screen, Urine Neg (NEGATIVE); Cocaine Screen, Urine Neg (NEGATIVE); Opiate Scree,Urine Neg (NEGATIVE); Phencyclidine Screen, Urine Neg (NEGATIVE)
[2024-07-06 01:00] VITALS: BP 116/65; PULSE 63; RESP 18; TEMP 97.8; O2SAT 96
[2024-07-06 05:00] VITALS: BP 107/64; PULSE 66; RESP 18; TEMP 98; O2SAT 97
[2024-07-06 08:00] VITALS: PULSE 67; RESP 18; O2SAT 96
[2024-07-06 08:30] VITALS: BP 112/74; PULSE 67; RESP 18; TEMP 98.2
[2024-07-06 12:00] VITALS: BP 141/89; PULSE 76; TEMP 98.1; O2SAT 96
[2024-07-06] MEDS ORDERED: LANC-268 XX (12:20)
[2024-07-06] MEDS ORDERED: INSU1INJ19 SC (12:20)
[2024-07-06] MEDS ORDERED: BLOO1KIT60 XX (12:20)
[2024-07-06] MEDS ORDERED: ATOR80TA PO (12:20)
[2024-07-06] MEDS ORDERED: BACDST PO (12:25)
--- NOTE | 2024-07-06 12:35 | DVHDS2 ---
Discharge Summary Date of Admission Jul 03, 2024 at 23:56 Date of Discharge: Jul 06, 2024 Admitting Diagnosis Diabetic ketoacidosis Labs/Diagnostic Data: Laboratory Results Test 07/06/24 11:23 07/05/24 22:10 07/05/24 12:58 07/05/24 10:41 POC Glucose 181 mg/dl (70-106) Urine Color Yellow (Yellow) Urine Clarity Clear (Clear) Urine pH 5.5 (5.0-9.0) Urine Specific [place] 1.020 (1.001-1.035) Urine Protein Trace (Negative) Urine Ketones 2+ (Negative) Urine Blood Negative /uL (Negative) Urine Nitrite Negative (Negative) Urine Bilirubin Negative (Negative) Urine Urobilinogen 2 mg/dL (Negative) Urine Leukocyte Esterase Negative /uL (Negative) Urine RBC 2 /hpf (0 - 3) Urine WBC 3 /hpf (0 - 3) Urine Squamous Epithelial Cells Few /hpf (<5) Urine Bacteria None seen /hpf (None Seen) Urine Mucus Few (None Seen) Urine Glucose Normal mg/dL (Normal) Urine Opiates Screen Neg (NEGATIVE) Urine Fentanyl Screen Neg (NEGATIVE) Urine Barbiturates Screen Neg (NEGATIVE) Urine Phencyclidine Screen Neg (NEGATIVE) Urine Amphetamines Screen Neg (NEGATIVE) Urine Benzodiazepines Screen Neg (NEGATIVE) Urine Cocaine Screen Neg (NEGATIVE) Urine Cannabinoids Screen Neg (NEGATIVE) Vancomycin Level Trough 4.8 ug/mL (5-10) Blood Gas Specimen Type Venous Blood Gas Sample Site Vbg - n/a Blood Gas Patient Temperature 37.0 Arterial Blood Date Drawn [id number] Dominic Test N/a Venous Blood pH 7.403 (7.320-7.430) Venous Blood pCO2 at Patient Temp 39.7 mmHg (38.0-54.0) Venous Blood pO2 at Patient Temp 58.1 mmHg (23.0-48.0) Venous Blood HCO3 24.2 mmol/L (22.0-29.0) Venous Blood Base Excess -0.4 mmol/L (-2.0-3.0) Blood Gas Modality [facility] - n/a FiO2 % 21.0 Test 07/05/24 08:37 07/04/24 15:14 07/03/24 21:28 07/03/24 19:27 White Blood Count 5.3 10^3/uL (4.4-10.8) Red Blood Count 4.78 10^6/uL (4.5-5.90) Hemoglobin 14.0 g/dL (13.5-17.5) Hematocrit 40.7 % (41.0-53.0) Mean Corpuscular Volume 85.2 fL (80.0-100.0) Mean Corpuscular Hemoglobin 29.2 pg (28.0-32.0) Mean Corpuscular Hemoglobin Concent 34.3 g/dL (32.0-36.0) Red Cell Distribution Width 14.7 % (11.8-14.3) Platelet Count 205 10^3/uL (140-450) Mean Platelet Volume 8.5 fL (6.9-10.8) Neutrophils (%) (Auto) % (37.0-80.0) Lymphocytes (%) (Auto) % (10.0-50.0) Monocytes (%) (Auto) % (0.0-12.0) Basophils (%) (Auto) % (0.0-2.0) Neutrophils # (Auto) 10 ^3/uL (1.6-8.6) Lymphocytes # (Auto) 10 ^3/uL (0.4-5.4) Monocytes # (Auto) 10 ^3/uL (0-1.3) Differential Total Cells Counted 100.0 (100) Neutrophils % (Manual) 57 (37.0-80.0) Band Neutrophils % (Manual) 1 Lymphocytes % (Manual) 28 (10.0-50.0) Monocytes % (Manual) 12 (0-12) Eosinophils % (Manual) 2 (0-7) Basophils % (Manual) 0 (0.0-2.0) Metamyelocytes % (manual) 0 Myelocytes % (Manual) 0 Promyelocytes % (Manual) 0 Blast Cells % (Manual) 0 Reactive Lymphocytes 0 Platelet Estimate Adequate Sodium Level 136 mmol/L (136-145) Potassium Level 3.6 mmol/L (3.5-5.1) Chloride Level 106 mmol/L (98-107) Carbon Dioxide Level < 10 mmol/L (20-31) Anion Gap 20.57804 (5-15) Blood Urea Nitrogen < 5 mg/dL (9-23) Creatinine 0.70 mg/dL (0.700-1.30) Glomerular Filtration Rate Calc 134 mL/min (>90) BUN/Creatinine Ratio 7.1 (10.0-20.0) Serum Glucose 233 mg/dL (74-106) Calcium Level 9.3 mg/dL (8.7-10.4) Triglycerides Level 1709 mg/dL (< 150) Cholesterol Level 409 mg/dL (< 200) LDL Cholesterol mg/dL (< 100) HDL Cholesterol 16 mg/dL (40-59) Beta-Hydroxybutyric Acid 0.342 mmol/L (< 0.4) Beta HCG, Quantitative 2.0 mIU/mL (0-2) Hemoglobin A1c 13.5 % A1C (<5.7) Lactic Acid Level 1.4 mmol/L (0.4-2.0) Eosinophils (%) (Auto) 1.5 % (0.0-7.0) Eosinophils # (Auto) 0.2 10 ^3/uL (0-0.8) Basophils # (Auto) 0.1 10 ^3/uL (0-0.2) Nucleated Red Blood Cells 0.2 % Total Bilirubin 0.6 mg/dL (0.2-1.0) Aspartate Amino Transferase (AST) 102 U/L (13-40) Alanine Aminotransferase (ALT) 84 U/L (7-40) Alkaline Phosphatase 104 U/L (46-116) Total Protein 8.2 g/dL (5.7-8.2) Albumin 5.2 g/dL (3.2-4.8) Other Laboratory Tests 07/05/24 08:37 Brief Hx & Hospital Course: History of Present Illness 23-year-old male presents for evaluation of left testicular pain. He reports a three day history of noticing a lump on his left testicle that is tender to touch. Denies fever or chills. He also reports excessive thirst and urination. Denies history of diabetes or any other medical problems. Course of hospitalization: Patient was started on antibiotic therapy with Rocephin and vancomycin. The patient's abscess, spontaneously drained with the abscess resolving. Patient was started on insulin drip after being found to be in diabetic ketoacidosis. Difficulties were found with running the patient was BNP is on multiple occasions with the patient being found to have persistent low CO2 as well as anion gap acidosis. The patient was triglycerides were checked, probable underlying etiology for inaccurate BMPs through our lab. Patient was triglycerides were found to be 1709 as well as his cholesterol being over 400. Patient had VBG which revealed the patient was out of acidosis. He was transitioned off of insulin drip to sliding scale as well as long-acting insulin. Patient was started on atorvastatin 80 mg at nighttime. Diabetic education was given to the patient. Long discussion was made with the patient's mother as well as girlfriend who was bedside. Patient will require lifestyle modification with respect to diet as well as needing to check his blood sugars twice a day and continuing with subcutaneous Lantus injections. He will also need to have a follow up with his [facility] PCP once he enrolls with the insurance. The patient will also follow up with the discharge Clinic in one week. Antibiotic therapy will be continued in the form of Bactrim DS one tablet twice a day for additional five days. Physical examination General: Alert and Oriented x3. No acute distress. Well-nourished. Eyes: EOMI. Anicteric. HENT: Moist mucous membranes. Lungs: Clear to auscultation bilaterally. No accessory muscle use. Cardiovascular: Regular rate and rhythm. No murmur. No JVD. Abdomen: Soft, non-tender and non-distended. No palpable masses. Extremities: No edema. Non-tender. Skin: No rashes or lesions. Warm. Neurologic: No focal neurological deficits. CN II-XII grossly intact, but not individually tested. Psychiatric: Cooperative. Appropriate mood and affect. Total time spent with patient discussing and formulating plan of care: 35 minutes. This medical document was created using an electronic medical record system with [employer] dictation system. Although this document has been carefully reviewed, there may still be some phonetic and typographical errors. These areas are purely typographical due to imperfections of the software programs, and do not reflect any compromise in the patient's medical care. Condition at Discharge: Fair Final Diagnosis/Problems List Diabetic ketoacidosis Secondary Diagnosis: -diabetic ketoacidosis -new diagnosis of diabetes mellitus -scrotal abscess with spontaneous draining -obesity -hyperkalemia -severe dyslipidemia with hypertriglyceridemia Discharge Disposition: Home Discharge Instruct/Medications Diet: Consistent carbohydrate, Cardiac 2g Na,low cholest Activity: No Restrictions, As Tolerated Follow Up/Referral: Discharge Clinic in one week Medications: Basaglar 15 units q.h.s. Accu-Cheks b.i.d. Atorvastatin 80 mg q.h.s. Bactrim ds b.i.d. x5 days 36 Discharge Statement: "Patient was advised to return to the ER or call 911 if any headaches, dizziness, shortness of breath, chest pain, abdominal pain, bleeding, fevers, or worsening of medical condition. Patient was counseled about treatment plan, medications, possible side effects, patientverbalized understanding. All questions were answered to the best of my ability. This discharge took greater then 30 minutes in planning, reviewing documentation, counseling the patient, and discussing with other team members." ASSESSMENT ASSESSMENT Assessment Diabetic ketoacidosis Date of Service: Jul 06, 2024 Billing Provider: JESÚS BECKER NP Common Visit Codes: [id number]/OBS DISCH DAY >30min JESÚS BECKER NP Jul 06, 2024 12:35
[2024-07-06 13:28] VITALS: BP 141/89; PULSE 67; RESP 18; TEMP 97.2; O2SAT 96
== END 2024-07-06 14:20 | disposition home or self-care (01) | DRG 501 ==
LOC: ER 17:32 → TELE 23:56 → WEST WING 07-05 19:05
PROVIDERS: ADMIT Nurse Practitioner; ATTEND Nurse Practitioner Acute Care
DX: N49.2 Inflammatory disorders of scrotum (principal); E11.10 Type 2 diabetes mellitus with ketoacidosis without coma; R65.10 Systemic inflammatory response syndrome (SIRS) of non-infectious origin without acute organ dysfunction; E87.5 Hyperkalemia; E66.9 Obesity, unspecified; E78.1 Pure hyperglyceridemia; E78.5 Hyperlipidemia, unspecified; Z68.41 Body mass index [BMI] 40.0-44.9, adult
CPT/HCPCS: 36415; 36600; 71045; 76870; 80048; 80053; 80061; 80202; 80307; 81001; 82010; 82805; 82962; 83036; 83605; 84702; 85007; 85025; 85027; G0378; J1815